=== PATIENT | female | born 1940 | race Caucasian/White ===

== ENCOUNTER 2019-03-06 16:52 | Emergency (ER) | payer MEDICARE ==
[~2019-03-06] VITALS: Ht 149.9 cm; Wt 44.0 kg
--- NOTE | 2019-03-06 18:47 | PHYS DOC ---
Past Medical History Past Medical History: Diabetes-Type II, Hypertension Additional Past Medical Histor: OSTEOPOROSIS Alcohol Use: None Drug Use: None Adult General Chief Complaint Chief Complaint: OTHER COMPLAINTS HPI HPI Patient is a 78 year old female with history of diabetes type 2, hypertension, who presents to the ED today complaining of bilateral feet swelling and redness on the bottom of the feet that has been present for the last 1 week. Patient reports she has history of Raynaud's disease. She reports she was seen by the PCP today and they sent her to the ED for Dopplers. Review of Systems Review of Systems Constitutional: Denies fever or chills [] Eyes: Denies change in visual acuity, redness, or eye pain [] HENT: Denies nasal congestion or sore throat [] Respiratory: Denies cough or shortness of breath [] Cardiovascular: No additional information not addressed in HPI [] GI: Denies abdominal pain, nausea, vomiting, bloody stools or diarrhea [] : Denies dysuria or hematuria [] Musculoskeletal: Reports bilateral feet redness and swelling. Denies back pain or joint pain [] Integument: Denies rash or skin lesions [] Neurologic: Denies headache, focal weakness or sensory changes [] All other systems were reviewed and found to be within normal limits, except as documented in this note. Allergies Allergies Allergies Coded Allergies Type Severity Reaction Last Updated Verified erythromycin base Allergy Intermediate 03/06/19 Yes Physical Exam Physical Exam Constitutional: Well developed, well nourished, no acute distress, non-toxic appearance. [] HENT: Normocephalic, atraumatic, bilateral external ears normal, oropharynx moist, no oral exudates, nose normal. [] Eyes: PERRLA, EOMI, conjunctiva normal, no discharge. [] Neck: Normal range of motion, no tenderness, supple, no stridor. [] Cardiovascular:Heart rate regular rhythm, no murmur [] Lungs & Thorax: Bilateral breath sounds clear to auscultation [] Abdomen: Bowel sounds normal, soft, no tenderness, no masses, no pulsatile masses. [] Skin: Warm, dry, no erythema, no rash. [] Back: No tenderness, no CVA tenderness. 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 No redness noted to bilateral lower extremities no warmth noted to bilateral lower extremities, negative Homans sign to bilateral lower extremities. +2 bilateral pedal pulses. +1 Bilateral edema to the lower extremities. Neurologic: Alert and oriented X 3, normal motor function, normal sensory function, no focal deficits noted. [] Psychologic: Affect normal, judgement normal, mood normal. [] Current Patient Data Vital Signs Vital Signs Date Time Temp Pulse Resp B/P (MAP) Pulse Ox O2 Delivery O2 Flow Rate FiO2 03/06/19 19:14 70 163/70 (101) 96 Room Air 03/06/19 17:05 98.3 16 98.3 EKG EKG [] Radiology/Procedures Radiology/Procedures []PROCEDURE: DUPLEX LOWER EXTREMITY BILAT INDICATION: Leg swelling COMPARISON: None. FINDINGS: Spectral Doppler ultrasound images obtained through the bilateral leg arterial system. Multifocal plaque is seen within the arterial vasculature of the bilateral legs. Biphasic waveform within the right common femoral artery, superficial femoral artery, popliteal artery as well as the anterior tibial artery, posterior tibial artery. Monophasic waveform within the peroneal artery. Borderline monophasic waveform within the dorsalis pedis artery. Biphasic waveform within the left common femoral artery, superficial femoral artery, popliteal artery, anterior tibial artery. Monophasic waveform in the posterior tibial, peroneal and dorsalis pedis arteries. IMPRESSION: * Multifocal calcified plaque is seen within the bilateral leg arterial system. There are some regions of monophasic waveforms seen distally within the bilateral legs which could be secondary to more proximal regions of stenosis. Electronically signed by: Billy Plascencia MD (03/06/2019 7:51 PM) [facility] [place] and SIGNED BY: BILLY PLASCENCIA MD DATE: 03/06/191950 PROCEDURE: VENOUS LOWER EXT BILATERAL INDICATION: Bilateral leg swelling COMPARISON: None. TECHNIQUE: Grayscale, color and doppler ultrasound images were obtained of the bilateral lower extremity venous vasculature. RIGHT: No thrombus identified in the common femoral vein, femoral vein, popliteal vein or visualized calf veins. LEFT: No thrombus identified in the common femoral vein, femoral vein, popliteal vein or visualized calf veins. IMPRESSION: * No thrombus identified in deep venous system of bilateral lower extremities. * Soft tissue edema with some limitation of the calf vessels secondary to overlying structures obscuring. Electronically signed by: Billy Plascencia MD (03/06/2019 7:31 PM) [facility] [place] SIGNED BY: BILLY PLASCENCIA MD DATE: 03/06/191930 Course & Med Decision Making Course & Med Decision Making Pertinent Labs and Imaging studies reviewed. (See chart for details) This is a 78-year-old female patient presenting to the ED today complaining of bilateral lower extremity swelling specifically her feet and redness to the bottom of her feet. Patient was sent to the ED by the PCP to get Dopplers. Venous Dopplers of bilateral lower extremities are negative. Arterial Dopplers of bilateral lower extremities were noted for plaque but with good flow. D/c to home F/u with PCP next week. Dragon Disclaimer Dragon Disclaimer This electronic medical record was generated, in whole or in part, using a voice recognition dictation system. Departure Departure Impression: Primary Impression: Edema, lower extremity Disposition: HOME, SELF-CARE Condition: STABLE Referrals: VIRY PATEL MD (PCP) follow up next week Patient Instructions: Edema, [id number] Additional Instructions: We did venous Dopplers of your bilateral lower extremities, you do not have any blood clots in your bilateral lower extremities, we also did arterial Dopplers of your bilateral lower extremities which showed you have some plaque to your lower extremities. Please follow-up with the primary care doctor and a vascular surgeon MAURICE DEVLIN APRN Mar 06, 2019 18:47
--- NOTE | 2019-03-06 19:34 | RAD ---
INDICATION: Bilateral leg swelling COMPARISON: None. TECHNIQUE: Grayscale, color and doppler ultrasound images were obtained of the bilateral lower extremity venous vasculature. RIGHT: No thrombus identified in the common femoral vein, femoral vein, popliteal vein or visualized calf veins. LEFT: No thrombus identified in the common femoral vein, femoral vein, popliteal vein or visualized calf veins. IMPRESSION: * No thrombus identified in deep venous system of bilateral lower extremities. * Soft tissue edema with some limitation of the calf vessels secondary to overlying structures obscuring. Electronically signed by: Parish Plascencia MD (03/06/2019 7:31 PM) [facility] [place]
--- NOTE | 2019-03-06 19:53 | RAD ---
INDICATION: Leg swelling COMPARISON: None. FINDINGS: Spectral Doppler ultrasound images obtained through the bilateral leg arterial system. Multifocal plaque is seen within the arterial vasculature of the bilateral legs. Biphasic waveform within the right common femoral artery, superficial femoral artery, popliteal artery as well as the anterior tibial artery, posterior tibial artery. Monophasic waveform within the peroneal artery. Borderline monophasic waveform within the dorsalis pedis artery. Biphasic waveform within the left common femoral artery, superficial femoral artery, popliteal artery, anterior tibial artery. Monophasic waveform in the posterior tibial, peroneal and dorsalis pedis arteries. IMPRESSION: * Multifocal calcified plaque is seen within the bilateral leg arterial system. There are some regions of monophasic waveforms seen distally within the bilateral legs which could be secondary to more proximal regions of stenosis. Electronically signed by: Parish Plascencia MD (03/06/2019 7:51 PM) [facility] [place]
[2019-03-06 20:32] VITALS: BP 183/74
== END 2019-03-06 20:32 | disposition home or self-care (01) ==
LOC: ER 16:52
DX: R60.0 Localized edema (principal); I10 Essential (primary) hypertension; E11.9 Type 2 diabetes mellitus without complications; Z88.1 Allergy status to other antibiotic agents; I70.203 Unspecified atherosclerosis of native arteries of extremities, bilateral legs
CPT/HCPCS: 93925; 93970; 99284-25